=== PATIENT | female | born 1935 | race Caucasian/White ===

== ENCOUNTER 2020-01-12 09:44 | Day surgery (SDC) | payer MEDICARE, BC ==
[2020-01-11 11:21] VITALS: BMI 28.1
[~2020-01-12 09:44] MED LIST: Bupivacaine PF 0.75% SDV 10 ML ONE; CEFAZOLIN 1 GM VIAL ONE; EPINEPHrine 0.3 MG in Ophthalmic Irrigation Solution 500 ML IRR SCH; Fentanyl 100 MCG/2 ML VIAL ONE; Indocyanine Green 25 MG/10 ML VIAL ONE; Lidocaine 1% PF 5 ML VIAL ONE; Lidocaine 4% PF 5 ML AMP ONE; Maxitrol 0.1% Opth Oint 3.5 GM TUBE ONE; Midazolam HCl 2 mg/2 ml Vial ONE; PROPOFOL 200 MG/20 ML VIAL ONE; Triamcinolone 40 MG/ML VIAL ONE
[2020-01-12] MEDS ORDERED: Cyclopentolate 1% Opth Drop 2 ML BOT ONE (10:10)
[2020-01-12] MEDS ORDERED: Phenylephrine 2.5% Ophth Soln 5 ML BOT ONE (10:10)
--- NOTE | 2020-01-12 17:59 | OP ---
DATE OF PROCEDURE: 01/12/2020 PRINCIPAL PREOPERATIVE DIAGNOSIS: Epiretinal membrane, left eye. POSTOPERATIVE DIAGNOSIS: Epiretinal membrane, left eye. NAME OF PROCEDURE PERFORMED: 1. 25-gauge pars plana vitrectomy, left eye. 2. Epiretinal membrane/internal limiting membrane removal, left eye. ESTIMATED BLOOD LOSS: None. SPECIMENS REMOVED: None. COMPLICATIONS: None. ANESTHESIA: MAC with retrobulbar block. SUMMARY OF OPERATION: The patient was identified in the preoperative holding area where the correct eye being the left eye was marked for surgery. The patient was taken to the operating room where MAC anesthesia was induced. A retrobulbar block was administered to the left eye. The block consisted of 1:1 ratio of 4% lidocaine and 0.75% Marcaine. A total of 5 mL was administered. The left eye was then prepped and draped in the usual sterile ophthalmic fashion for surgery. A wire-clip lid speculum was placed. A standard 25-gauge pars plana vitrectomy platform was fashioned with trocars placed approximately 3.5 mm from the limbus. The infusion was noted to be within the vitreous cavity prior to being turned on to an infusion pressure of 30 mmHg. The light pipe and microvitrector were introduced in the eye under visualization of the BIOM viewing system. A careful core and peripheral shave vitrectomy were performed. The ICG dye was inserted in the eye to stain the internal limiting membrane. Using the Raymond ILM forceps, the internal limiting membrane/epiretinal membrane complex removal was performed in a circumferential fashion about the fovea. The peel extended approximately 2 disk diameters in radius circumferentially. Following peeling, the microvitrector was reintroduced in the eye to remove any residual vitreous debris. A 360-degree scleral depressed exam of the periphery revealed no defects. The cannulas were sequentially removed and the superonasal sclerotomy was sutured with 8-0 Vicryl suture. Following suturing, all sclerotomies were noted to be watertight. Subconjunctival Ancef and Kenalog were injected. The wire-clip lid speculum was removed followed by application of TobraDex ophthalmic ointment and a light patch and shield. The patient tolerated the procedure well and was taken to the outpatient recovery area in good condition. Job ID: [id number]
== END 2020-01-12 13:07 | disposition home or self-care (01) ==
LOC: SDC 09:44
PROVIDERS: ATTEND Ophthalmology Retina Specialist
PROC: 08T53ZZ Resection of Left Vitreous, Percutaneous Approach (ICD-10-PCS; principal; 2020-01-12)
PROC: 08NF3ZZ Release Left Retina, Percutaneous Approach (ICD-10-PCS; 2020-01-12)
DX: H35.372 Puckering of macula, left eye (principal); I10 Essential (primary) hypertension; I25.10 Atherosclerotic heart disease of native coronary artery without angina pectoris; G43.909 Migraine, unspecified, not intractable, without status migrainosus; E03.9 Hypothyroidism, unspecified; Z87.891 Personal history of nicotine dependence; Z79.82 Long term (current) use of aspirin; Z79.899 Other long term (current) drug therapy; Z88.8 Allergy status to other drugs, medicaments and biological substances; Z91.040 Latex allergy status; Z95.5 Presence of coronary angioplasty implant and graft
CPT/HCPCS: J0171; J0690; J2001; J2250; J2704; J3010; J3301; J3490

== ENCOUNTER 2020-08-04 07:47 | Outpatient (CLI) | payer MEDICARE, BC, OTHER ==
[2020-08-05 12:45] LABS: SARS-CoV-2 MS2 Positive; SARS-CoV-2 N Gene Negative; SARS-CoV-2 S Gene Negative; SARS-CoV-2 by NAA Not Detected (NotDetected); SARS-CoV-2 orf1ab Negative
== END 2020-08-04 07:48 | disposition home or self-care (01) ==
LOC: LABBT 07:47
PROVIDERS: ATTEND Family Medicine
DX: H35.371 Puckering of macula, right eye (principal); Z20.828 Contact with and (suspected) exposure to other viral communicable diseases
CPT/HCPCS: 87635; U0003

== ENCOUNTER 2020-08-09 06:23 | Day surgery (SDC) | payer MEDICARE, BC ==
[2020-08-04 10:16] VITALS: BMI 28.6
[2020-08-09] MEDS ORDERED: EPINEPHrine 0.3 MG in Ophthalmic Irrigation Solution 500 ML IRR SCH (06:30)
[2020-08-09] MEDS ORDERED: Midazolam HCl 2 mg/2 ml Vial ONE (06:32)
[2020-08-09] MEDS ORDERED: Fentanyl 100 MCG/2 ML VIAL ONE (06:32)
[2020-08-09] MEDS ORDERED: PROPOFOL 20 ML ONE (06:33)
[2020-08-09] MEDS ORDERED: Phenylephrine 2.5% Ophth Soln 5 ML BOT ONE (06:57)
[2020-08-09] MEDS ORDERED: Cyclopentolate 1% Opth Drop 2 ML BOT ONE (06:57)
--- NOTE | 2020-08-09 11:11 | OP ---
DATE OF PROCEDURE: 08/09/2020 PRINCIPAL PREOPERATIVE DIAGNOSIS: Epiretinal membrane, right eye. POSTOPERATIVE DIAGNOSIS: Epiretinal membrane, right eye. PROCEDURES PERFORMED: 1. 25-gauge pars plana vitrectomy, right eye. 2. Epiretinal membrane/internal limiting membrane removal, right eye. ESTIMATED BLOOD LOSS: None. SPECIMENS REMOVED: None. COMPLICATIONS: None. ANESTHESIA: MAC with sub-Tenon's block. DESCRIPTION OF PROCEDURE: The patient was identified in the preoperative holding area, where the correct eye being the right eye was marked for surgery. The patient was taken to the operating room, where MAC anesthesia was induced. The right eye was prepped and draped in usual sterile ophthalmic fashion for surgery. A wire-clip lid speculum was placed. An inferonasal conjunctival peritomy was fashioned with Olga scissors for administration sub-Tenon's block. The block consisted of 1:1 ratio of 4% lidocaine and 0.75% Marcaine. A total of 5 mL was administered. A standard 25-gauge pars plana vitrectomy platform was fashioned with trocars placed approximately 3.5 mm from the limbus. The infusion was noted to be within the vitreous cavity prior to being turned on to infusion pressure of 30 mmHg. The light pipe and microvitrector were introduced in the eye under visualization of the BIOM viewing system. A careful core and peripheral shave vitrectomy were performed. Following vitrectomy, ICG dye was used to stain the internal limiting membrane. Using the Raymond ILM forceps, the internal limiting membrane/epiretinal membrane complex were removed in a circumferential fashion about the fovea. The peel extended approximately 2 disk diameters in radius circumferentially. Following peeling, the microvitrector was reintroduced in the eye to remove any residual vitreous debris. A 360 degree exam of the periphery revealed no defects. The cannulas were sequentially removed and all sclerotomies were noted to be watertight. Subconjunctival Ancef and Kenalog were injected. The wire-clip lid speculum was removed followed by application of TobraDex ophthalmic ointment and a light patch and shield. The patient tolerated the procedure well and was taken to the outpatient recovery area in good condition. Job ID: [id number]
[2020-08-09] MEDS ORDERED: PROPOFOL 200 MG/20 ML VIAL ONE (13:42)
[2020-08-09] MEDS ORDERED: Maxitrol 0.1% Opth Oint 3.5 GM TUBE ONE (13:42)
[2020-08-09] MEDS ORDERED: Lidocaine 1% PF 5 ML VIAL ONE (13:42)
[2020-08-09] MEDS ORDERED: Triamcinolone 40 MG/ML VIAL ONE (13:42)
[2020-08-09] MEDS ORDERED: CEFAZOLIN 1 GM VIAL ONE (13:42)
[2020-08-09] MEDS ORDERED: Indocyanine Green 25 MG/10 ML VIAL ONE (13:42)
[2020-08-09] MEDS ORDERED: Bupivacaine PF 0.75% SDV 10 ML ONE (13:42)
[2020-08-09] MEDS ORDERED: Lidocaine 4% PF 5 ML AMP ONE (13:42)
== END 2020-08-09 09:16 | disposition home or self-care (01) ==
LOC: SDC 06:23
PROVIDERS: ATTEND Ophthalmology Retina Specialist
PROC: 08T43ZZ Resection of Right Vitreous, Percutaneous Approach (ICD-10-PCS; principal; 2020-08-09)
PROC: 08NE3ZZ Release Right Retina, Percutaneous Approach (ICD-10-PCS; 2020-08-09)
DX: H35.371 Puckering of macula, right eye (principal); Z79.899 Other long term (current) drug therapy; Z88.8 Allergy status to other drugs, medicaments and biological substances; Z91.040 Latex allergy status; Z95.5 Presence of coronary angioplasty implant and graft
CPT/HCPCS: J0171; J0690; J2001; J2250; J2704; J3010; J3301; J3490